=== PATIENT | male | born 1940 | race Caucasian/White ===

== ENCOUNTER 2019-07-14 17:19 | Inpatient (IN) | payer MEDICARE, OTHER ==
[~2019-07-14] VITALS: Ht 182.9 cm; Wt 124.1 kg
[~2019-07-14 17:19] MED LIST: AMLO-150 PO; ASPI-515 PO; CHOL100015 PO; HYDR-36 PO; LEVO125T PO; LISI-167 PO; METO50TA82 PO; NAPR-685 PO; PANT40TA5 PO
--- NOTE | 2019-07-14 17:35 | NUR ---
THIS IS AN 78YO M BIB [facility] FROM [facility] W/ C/O DIFFICULTY SWALLOWING. EMS STATES THAT THEY ATTEMPTED TO DO A BARIUM SWALLOW TEST BUT THE PATIENT REGURGITATED IMMEDIATELY. CONFIRMED HX OF ESOPHAGEAL STRICTURES. PATIENTS RESPIRATIONS ARE EVEN AND UNLABORED. PATIENTS IS IN NO ACUTE DISTRESS. VS STABLE. AWAITING EVAL FROM PROVIDER. CALL LIGHT IN REACH. DENIES FURTHER NEEDS AT THIS TIME.
[2019-07-14] MEDS ORDERED: SODIUM CHLORIDE 0.9% 1,000 ML IV ONE (18:20)
[2019-07-14] MEDS ORDERED: SODIUM CHLORIDE FLUSH 10ML SYR IVF ONE (18:30)
[2019-07-14 18:37] LABS: BASOPHILS # (AUTO) 0.03 x10^3/uL (0-0.1); BASOPHILS % (AUTO) 0 % (0-1); EOSINOPHILS # (AUTO) 0.27 x10^3/uL (0-0.4); EOSINOPHILS % (AUTO) 3 % (1-7); LYMPHOCYTES # (AUTO) 1.38 x10^3/uL (1-3.4); LYMPHOCYTES % (AUTO) 15 % (22-44); MD NO; MEAN CORPUSCULAR HEMOGLOBIN 32.9 pg (27.5-34.5); MEAN CORPUSCULAR HGB CONC 33.3 g/dL (33.2-36.2); MEAN CORPUSCULAR VOLUME 98.9 fL (81-97); MEAN PLATELET VOLUME 6.5 fL (7.4-10.4); MONOCYTES # (AUTO) 0.67 x10^3/uL (0.2-0.8); MONOCYTES % (AUTO) 7 % (2-9); NEUTROPHILS # (AUTO) 6.73 x10^3/uL (1.8-6.8); NEUTROPHILS % (AUTO) 74 % (42-75); PLATELET COUNT 302 x10^3/uL (130-400); RED BLOOD COUNT 4.44 x10^6/uL (4.38-5.82); RED CELL DISTRIBUTION WIDTH 14.5 % (9.4-14.8)
[2019-07-14 18:45] LABS: INTERNATIONAL NORMALIZED RATIO 1.02 (0.93-1.1); PROTHROMBIN TIME 10.7 Seconds (9.6-11.5)
[2019-07-14 18:46] LABS: ALANINE AMINOTRANSFERASE 20 U/L (12-78); ALBUMIN 3.5 g/dL (3.4-5.0); ANION GAP 4 mmol/L (5-15); CALCIUM 9.1 mg/dL (8.5-10.1); CHLORIDE 111 mmol/L (98-107); CREATININE 1.14 mg/dL (0.7-1.3)
[2019-07-14 18:49] LABS: ALKALINE PHOSPHATASE 58 U/L (45-117); BILIRUBIN,TOTAL 0.9 mg/dL (0.2-1.0); TOTAL PROTEIN 7.6 g/dL (6.4-8.2)
--- NOTE | 2019-07-14 18:54 | NUR ---
REPORT GIVEN TO LAVONNE VEGA. PATIENT RESTING ON GURNEY WITH FAMILY AT BEDSIDE AWAITING TEST RESULTS. CALL LIGHT IN REACH. DENIES FURTHER NEEDS AT THIS TIME.
[2019-07-14] MEDS ORDERED: MORPHINE SULFATE 4 MG/ML, 1ML ONE (19:49)
[2019-07-14] MEDS ORDERED: MORPHINE SULFATE 4 MG/ML, 1ML IVPush ONE (20:00)
--- NOTE | 2019-07-14 20:31 | NUR ---
Admitting MD at bedside
[2019-07-14] MEDS ORDERED: D5%-0.45NACL+KCL 20MEQ 1,000 ML IV SCH (20:48)
[2019-07-14] MEDS ORDERED: PRED10TA PO (20:59)
[2019-07-14] MEDS ORDERED: PRED5TAB PO (20:59)
[2019-07-14] MEDS ORDERED: hydrALAzine 20 MG/ML, 1ML IVPush PRN (21:00)
[2019-07-14] MEDS ORDERED: ONDANSETRON 2MG/ML, 2ML IVPush PRN (21:00)
[2019-07-14] MEDS ORDERED: PROMETHAZINE 25 MG/ML, 1ML IM PRN (21:00)
[2019-07-14] MEDS ORDERED: ENALAPRILAT 1.25 MG/ML, 2ML IVPush PRN (21:00)
--- NOTE | 2019-07-14 21:02 | NUR ---
Pt alert and resting on gurney. Pt noted to be 84-86% RA. Pt does wear 2L NC at home when needed and at night. Pt placed on 2L NC with sats at 91%. at bedside. Aware of wait for room. No needs at this time.
--- NOTE | 2019-07-14 21:06 | NUR ---
Report given to SILVIA Dennis on floor
[2019-07-14 21:31] VITALS: BP 155/78
[2019-07-15] MEDS: morphine SULFATE 10 MG/ML, 1ML IVPush PRN ×2 (02:15→06:10)
[2019-07-15 05:54] LABS: BASOPHILS # (AUTO) 0.03 x10^3/uL (0-0.1); BASOPHILS % (AUTO) 0 % (0-1); EOSINOPHILS # (AUTO) 0.24 x10^3/uL (0-0.4); EOSINOPHILS % (AUTO) 2 % (1-7); LYMPHOCYTES # (AUTO) 1.01 x10^3/uL (1-3.4); LYMPHOCYTES % (AUTO) 10 % (22-44); MD NO; MEAN CORPUSCULAR HEMOGLOBIN 33.1 pg (27.5-34.5); MEAN CORPUSCULAR HGB CONC 33.3 g/dL (33.2-36.2); MEAN CORPUSCULAR VOLUME 99.4 fL (81-97); MEAN PLATELET VOLUME 6.8 fL (7.4-10.4); MONOCYTES % (AUTO) 8 % (2-9); NEUTROPHILS # (AUTO) 8.49 x10^3/uL (1.8-6.8); NEUTROPHILS % (AUTO) 80 % (42-75); PLATELET COUNT 281 x10^3/uL (130-400); RED BLOOD COUNT 4.23 x10^6/uL (4.38-5.82); RED CELL DISTRIBUTION WIDTH 14.5 % (9.4-14.8)
[2019-07-15 06:00] VITALS: BP 137/80
[2019-07-15 06:02] LABS: ANION GAP 6 mmol/L (5-15); CALCIUM 8.4 mg/dL (8.5-10.1); CHLORIDE 110 mmol/L (98-107); CREATININE 1.16 mg/dL (0.7-1.3)
[2019-07-15] MEDS ORDERED: PANTOPRAZOLE 40 MG IV IVPush SCH (07:30)
[2019-07-15] MEDS ORDERED: OXYcodone 5 MG/5 ML ORAL.SOL UDC PO PRN (08:00)
[2019-07-15] MEDS ORDERED: hydrALAzine 20 MG/ML, 1ML IV PRN (08:00)
[2019-07-15] MEDS ORDERED: PROMETHAZINE 25 MG/ML, 1ML IV PRN (08:00)
[2019-07-15] MEDS ORDERED: HYDROmorphone 1 MG/ML, 1ML INJ IVPush PRN (08:00)
[2019-07-15] MEDS ORDERED: FENTANYL PF 100 MCG/2ML IV PRN (08:00)
[2019-07-15] MEDS ORDERED: ONDANSETRON 2MG/ML, 2ML IV PRN (08:00)
[2019-07-15] MEDS ORDERED: LABETALOL 5MG/ML, 20ML IV PRN (08:00)
[2019-07-15] MEDS ORDERED: FENTANYL PF 100 MCG/2ML ONE (09:18)
[2019-07-15] MEDS ORDERED: MIDAZOLAM 1 MG/ML, 2ML ONE (09:18)
[2019-07-15] MEDS ORDERED: ROCURONIUM 10MG/ML,5ML ONE (09:43)
[2019-07-15] MEDS ORDERED: PROPOFOL 10 MG/ML, 20ML ONE (09:43)
[2019-07-15] MEDS ORDERED: SUCCINYLCHOLINE 20 MG/ML, 10ML ONE (09:46)
[2019-07-15] MEDS ORDERED: DEXAMETHASONE 4 MG/ML, 1ML ONE ×2 (09:55)
[2019-07-15] MEDS ORDERED: ONDANSETRON 2MG/ML, 2ML ONE (10:00)
[2019-07-15] MEDS ORDERED: OMEP-110 PO (14:48)
[2019-07-15 14:51] VITALS: BP 124/77
[2019-07-15] MEDS ORDERED: HYDROcodone/APAP 10/325 MG TABLET PO PRN (15:30)
[2019-07-15 18:39] VITALS: BP 120/68
[2019-07-15] MEDS: METOPROLOL TARTRATE 50 MG TABLET PO SCH (20:28)
[2019-07-16 02:05] VITALS: BP 139/81
[2019-07-16 05:21] LABS: BASOPHILS % (AUTO) 0 % (0-1); EOSINOPHILS % (AUTO) 0 % (1-7); LYMPHOCYTES # (AUTO) 0.67 x10^3/uL (1-3.4); LYMPHOCYTES % (AUTO) 7 % (22-44); MD NO; MEAN CORPUSCULAR HGB CONC 33.2 g/dL (33.2-36.2); MEAN CORPUSCULAR VOLUME 99.1 fL (81-97); MEAN PLATELET VOLUME 6.8 fL (7.4-10.4); MONOCYTES % (AUTO) 5 % (2-9); NEUTROPHILS # (AUTO) 8.32 x10^3/uL (1.8-6.8); NEUTROPHILS % (AUTO) 88 % (42-75); PLATELET COUNT 278 x10^3/uL (130-400); RED BLOOD COUNT 4.18 x10^6/uL (4.38-5.82); RED CELL DISTRIBUTION WIDTH 14.2 % (9.4-14.8)
[2019-07-16 05:29] LABS: ANION GAP 5 mmol/L (5-15); CALCIUM 8.8 mg/dL (8.5-10.1); CHLORIDE 108 mmol/L (98-107)
[2019-07-16 05:32] LABS: CREATININE 1.08 mg/dL (0.7-1.3)
[2019-07-16] MEDS ORDERED: LEVOTHYROXINE 125 MCG TABLET PO SCH (06:00)
[2019-07-16 08:02] VITALS: BP 127/76
[2019-07-16] MEDS ORDERED: PANTOPROZOLE 40MG TABLET PO SCH (09:00)
[2019-07-16] MEDS ORDERED: AMLODIPINE 10 MG TAB PO SCH (09:00)
[2019-07-16] MEDS ORDERED: ASPIRIN 81 MG TABLET EC PO SCH (09:00)
[2019-07-16] MEDS ORDERED: LISINOPRIL 10 MG TABLET PO SCH (09:00)
[2019-07-16] MEDS: METOPROLOL TARTRATE 50 MG TABLET PO SCH (09:36)
== END 2019-07-16 14:30 | disposition home or self-care (01) | DRG 393 ==
LOC: ED 20:06 → EDIP 20:10 → 3N 21:27 → DCLOUNGE 07-16 14:15
PROVIDERS: ADMIT Family Medicine; ATTEND Family Medicine
PROC: 0D748ZZ Dilation of Esophagogastric Junction, Via Natural or Artificial Opening Endoscopic (ICD-10-PCS; 2019-07-15)
PROC: 0DC48ZZ Extirpation of Matter from Esophagogastric Junction, Via Natural or Artificial Opening Endoscopic (ICD-10-PCS; principal; 2019-07-15 11:00)
DX: T18.128A Food in esophagus causing other injury, initial encounter (principal); J96.21 Acute and chronic respiratory failure with hypoxia; K22.2 Esophageal obstruction; D89.9 Disorder involving the immune mechanism, unspecified; M35.3 Polymyalgia rheumatica; E03.9 Hypothyroidism, unspecified; E66.9 Obesity, unspecified; E86.0 Dehydration; G47.33 Obstructive sleep apnea (adult) (pediatric); I10 Essential (primary) hypertension; J44.9 Chronic obstructive pulmonary disease, unspecified; K22.8 Other specified diseases of esophagus; Z96.611 Presence of right artificial shoulder joint; Z96.612 Presence of left artificial shoulder joint; Z96.659 Presence of unspecified artificial knee joint; Z68.31 Body mass index [BMI] 31.0-31.9, adult; Z87.891 Personal history of nicotine dependence; Z99.81 Dependence on supplemental oxygen; Z72.89 Other problems related to lifestyle; Z88.1 Allergy status to other antibiotic agents; K21.0 Gastro-esophageal reflux disease with esophagitis
CPT/HCPCS: 36415; 80048; 80053; 83690; 83735; 84100; 84145; 85025; 85610; 93005; 96374; G0378; J1100; J2250; J2405; J2704; J3010; C9113; J0330; J2270; J3480; J7030; J7512